=== PATIENT | male | born 1960 | race Caucasian/White ===

== ENCOUNTER 2019-07-22 21:39 | Emergency (ER) | payer MEDICARE ==
[2019-07-22 21:56] LABS: #Basophils 0.1 thou/uL (0.0-0.2); #Eosinphils 0.4 thou/uL (0.0-0.7); #Lymphocytes 2.6 thou/uL (1.20-3.40); #Monocytes 0.7 thou/uL (0.11-0.59); #Neutrophils 4.6 thou/uL (1.40-6.50); %Eosinophils 4.6 % (0.0-10.0); %Lymphocytes 30.7 % (21.0-51.0); %Monocytes 8.6 % (0.0-10.0); %Neutrophils 55.1 % (42.0-75.0); Hemoglobin 13.6 g/dL (14.0-18.0); Mean Corpuscular HGB CONC 34.7 g/dL (32.0-36.0); Mean Corpuscular Hemoglobin 29.7 pg (27.0-31.0); Mean Corpuscular Volume 85.5 fL (78.0-98.0); Platelet Count 325 thou/uL (130-400); RBC Distribution Width 12.6 % (11.5-14.5); Red Blood Cell (RBC) Count 4.59 mill/uL (4.70-6.10); White Blood Cell (WBC) Count 8.3 thou/uL (4.8-10.8)
[2019-07-22] MEDS ORDERED: Nitroglycerin 0.4 MG TAB (25 Tab Bottle) ONE (21:56)
[2019-07-22] MEDS ORDERED: Aspirin Chewable 81 MG TAB ONE (21:56)
--- NOTE | 2019-07-22 22:12 | RAD ---
XR Chest 1 View Portable HISTORY: Chest pain COMPARISON: None FINDINGS: The heart size is normal. The lungs are well expanded without focal areas of consolidation, pneumothorax or pleural effusions. IMPRESSION: No radiographic evidence of acute cardiopulmonary process.
[2019-07-22] MEDS ORDERED: Morphine 4 MG/ML VIAL ONE (22:14)
[2019-07-22] MEDS ORDERED: Nitroglycerin 2% Ointment 1 INCH/1 GM Packet ONE (22:14)
[2019-07-22 22:16] LABS: ALT (SGPT) 25 U/L (8-55); AST (SGOT) 22 U/L (5-34); Alkaline Phosphatase 52 U/L (40-110); Anion Gap 16 mmol/L (10-20); BUN (Urea Nitrogen) 25 mg/dL (8.4-25.7); Bilirubin, Total 0.2 mg/dL (0.2-1.2); Calc. Creatinine Clearance 0 mL/min (70-130); Calcium 8.9 mg/dL (7.8-10.44); Carbon Dioxide 22 mmol/L (22-29); Chloride 106 mmol/L (98-107); Estimated GFR-MDRD 87; Glucose 91 mg/dL (70-105); Potassium 3.5 mmol/L (3.5-5.1); Sodium 140 mmol/L (136-145)
== END 2019-07-22 22:50 | disposition short-term general hospital (02) ==
LOC: NAV ERS 21:39
DX: I10 Essential (primary) hypertension (principal); R07.9 Chest pain, unspecified; R94.31 Abnormal electrocardiogram [ECG] [EKG]; E78.5 Hyperlipidemia, unspecified; E78.00 Pure hypercholesterolemia, unspecified; I25.10 Atherosclerotic heart disease of native coronary artery without angina pectoris; I25.2 Old myocardial infarction; F32.9 Major depressive disorder, single episode, unspecified; Z79.891 Long term (current) use of opiate analgesic; Z79.82 Long term (current) use of aspirin; Z79.899 Other long term (current) drug therapy
CPT/HCPCS: 36415; 71045; 80053; 84484; 85025; 93005; 94760; 96374; J2270

== ENCOUNTER → 2019-11-07 | Emergency (ER) | payer MEDICARE ==
[~2019-11-07] MED LIST: Aspirin Chewable 81 MG TAB ONE; Morphine 4 MG/ML VIAL ONE; Nitroglycerin 0.4 MG TAB (25 Tab Bottle) ONE; Ondansetron PF 4 MG/2 ML Vial ONE; diphenhydrAMINE 25 MG CAP ONE
[2019-11-07 22:17] LABS: #Basophils 0.1 thou/uL (0.0-0.2); #Eosinphils 0.4 thou/uL (0.0-0.7); #Lymphocytes 2.7 thou/uL (1.20-3.40); #Monocytes 0.8 thou/uL (0.11-0.59); %Basophils 0.8 % (0.0-1.0); %Lymphocytes 24.3 % (21.0-51.0); %Monocytes 7.5 % (0.0-10.0); %Neutrophils 63.4 % (42.0-75.0); Hemoglobin 14.1 g/dL (14.0-18.0); Mean Corpuscular HGB CONC 32.1 g/dL (32.0-36.0); Mean Corpuscular Hemoglobin 29.6 pg (27.0-31.0); Mean Corpuscular Volume 92.3 fL (78.0-98.0); Mean Platelet Volume 7.2 fL (7.4-10.4); Platelet Count 306 thou/uL (130-400); RBC Distribution Width 11.9 % (11.5-14.5); Red Blood Cell (RBC) Count 4.75 mill/uL (4.70-6.10)
[2019-11-07 22:33] LABS: ALT (SGPT) 21 U/L (8-55); AST (SGOT) 21 U/L (5-34); Albumin 4.1 g/dL (3.5-5.0); Alkaline Phosphatase 47 U/L (40-110); Anion Gap 14 mmol/L (10-20); BUN (Urea Nitrogen) 20 mg/dL (8.4-25.7); Bilirubin, Total 0.3 mg/dL (0.2-1.2); Calc. Creatinine Clearance 0 mL/min (70-130); Calcium 9.1 mg/dL (7.8-10.44); Carbon Dioxide 25 mmol/L (22-29); Chloride 104 mmol/L (98-107); Estimated GFR-MDRD 80; Globulin 3.4 g/dL (2.4-3.5); Glucose 101 mg/dL (70-105); Potassium 3.7 mmol/L (3.5-5.1); Protein, Total 7.5 g/dL (6.0-8.3); Sodium 139 mmol/L (136-145)
--- NOTE | 2019-11-08 07:21 | RAD ---
CHEST 1 VIEW: Date: 11/07/2019 HISTORY: Chest pain. COMPARISON: Radiograph dated 07/28/2019. FINDINGS: Lungs are clear. There is a right humeral head prosthesis. Cardiac silhouette and mediastinal contour s are similar appearing. No acute osseous abnormality. IMPRESSION: No acute intrathoracic abnormality. POS: HOME
== END ==
LOC: NAV ERS 21:53
DX: R07.9 Chest pain, unspecified (principal); R06.02 Shortness of breath; R00.2 Palpitations; I25.2 Old myocardial infarction; E78.5 Hyperlipidemia, unspecified; R42 Dizziness and giddiness; I11.0 Hypertensive heart disease with heart failure; I50.9 Heart failure, unspecified; E78.00 Pure hypercholesterolemia, unspecified; I25.10 Atherosclerotic heart disease of native coronary artery without angina pectoris; Z79.891 Long term (current) use of opiate analgesic; Z79.82 Long term (current) use of aspirin; Z79.899 Other long term (current) drug therapy
CPT/HCPCS: 36415; 71045; 80053; 84484; 85025; 93005; 94760; 96374; 96375; 96376; J2270; J2405; Q0163

== ENCOUNTER 2019-12-01 21:57 | Emergency (ER) | payer MEDICARE ==
[2019-12-01] MEDS ORDERED: Morphine 2 MG/ML SYRINGE ONE ×2 (22:15→22:54)
[2019-12-01] MEDS ORDERED: Aspirin Chewable 81 MG TAB ONE (22:15)
[2019-12-01 22:17] LABS: #Basophils 0.1 thou/uL (0.0-0.2); #Eosinphils 0.5 thou/uL (0.0-0.7); #Lymphocytes 2.7 thou/uL (1.20-3.40); #Monocytes 0.9 thou/uL (0.11-0.59); #Neutrophils 6.9 thou/uL (1.40-6.50); %Basophils 0.7 % (0.0-1.0); %Eosinophils 4.5 % (0.0-10.0); %Lymphocytes 24.3 % (21.0-51.0); %Monocytes 8.2 % (0.0-10.0); %Neutrophils 62.3 % (42.0-75.0); Hemoglobin 13.4 g/dL (14.0-18.0); Mean Corpuscular HGB CONC 31.7 g/dL (32.0-36.0); Mean Corpuscular Volume 94.9 fL (78.0-98.0); Mean Platelet Volume 6.9 fL (7.4-10.4); Platelet Count 296 thou/uL (130-400); RBC Distribution Width 12.2 % (11.5-14.5); Red Blood Cell (RBC) Count 4.47 mill/uL (4.70-6.10)
[2019-12-01] MEDS ORDERED: Ondansetron PF 4 MG/2 ML Vial ONE (22:21)
--- NOTE | 2019-12-01 22:31 | RAD ---
Chest AP view INDICATION: Chest pain COMPARISON: Prior exam dated November 07, 2019 FINDINGS: Lungs: The lungs are clear Cardiac silhouette: The cardiomediastinal silhouette appears within normal limits. Pulmonary vasculature: Normal Pleural spaces: No pleural effusion or pneumothorax is demonstrated. Upper abdomen: No abnormality seen. Osseous structures: Right shoulder replacement is stable. No acute fracture or subluxation demonstra christian. Additional findings: None. IMPRESSION: No acute cardiopulmonary abnormality.
[2019-12-01 22:35] LABS: ALT (SGPT) 17 U/L (8-55); AST (SGOT) 22 U/L (5-34); Albumin 4.1 g/dL (3.5-5.0); Alkaline Phosphatase 46 U/L (40-110); Anion Gap 18 mmol/L (10-20); BUN (Urea Nitrogen) 19 mg/dL (8.4-25.7); Bilirubin, Total 0.3 mg/dL (0.2-1.2); CK (CPK) 115 U/L (30-200); Calc. Creatinine Clearance 0 mL/min (70-130); Calcium 9.4 mg/dL (7.8-10.44); Carbon Dioxide 21 mmol/L (22-29); Chloride 107 mmol/L (98-107); Estimated GFR-MDRD 77; Globulin 3.5 g/dL (2.4-3.5); Glucose 140 mg/dL (70-105); Lipase 50 U/L (8-78); Potassium 4.4 mmol/L (3.5-5.1); Protein, Total 7.6 g/dL (6.0-8.3); Sodium 142 mmol/L (136-145)
[2019-12-01] MEDS ORDERED: Mag-Al Plus 1200 MG/1200 MG/120 MG/30 ML UDCUP ONE (22:39)
[2019-12-01] MEDS ORDERED: Lidocaine Viscous Sol 2% 15 ml UD Cup ONE (22:39)
== END 2019-12-01 23:30 | disposition home or self-care (01) ==
LOC: NAV ERS 21:57
DX: R07.9 Chest pain, unspecified (principal); I11.0 Hypertensive heart disease with heart failure; I50.9 Heart failure, unspecified; I25.10 Atherosclerotic heart disease of native coronary artery without angina pectoris; E78.5 Hyperlipidemia, unspecified; K21.9 Gastro-esophageal reflux disease without esophagitis; Z79.899 Other long term (current) drug therapy; F41.9 Anxiety disorder, unspecified; F32.9 Major depressive disorder, single episode, unspecified; I25.2 Old myocardial infarction
CPT/HCPCS: 71045; 80053; 82550; 83690; 84484; 85025; 93005; 96374; 96375; 96376; J2270; J2405

== ENCOUNTER 2020-01-22 15:14 | Emergency (ER) | payer MEDICARE ==
[2020-01-22] MEDS ORDERED: Ondansetron PF 4 MG/2 ML Vial ONE (15:36)
[2020-01-22] MEDS ORDERED: Aspirin Chewable 81 MG TAB ONE (15:36)
[2020-01-22] MEDS ORDERED: Nitroglycerin 2% Ointment 1 INCH/1 GM Packet ONE (15:36)
--- NOTE | 2020-01-22 15:42 | RAD ---
XR Chest 1 View Portable History: Chest pain Comparison: Radiograph 07/25/2019 Findings: Intact right shoulder hemiarthroplasty with complete narrowing of the subacromial space. Mi ld elevation left hemidiaphragm, chronic. Heart size upper limits of normal. No confluent airspace consolidation, pneumothorax or effusion. Lik selina a prominent nipple shadow between the posterior left seventh and eighth ribs. Impression: Chronic findings. No acute intrathoracic abnormality.
[2020-01-22 16:17] LABS: ALT (SGPT) 23 U/L (8-55); AST (SGOT) 21 U/L (5-34); Albumin 4.2 g/dL (3.5-5.0); Alkaline Phosphatase 42 U/L (40-110); Anion Gap 14 mmol/L (10-20); BUN (Urea Nitrogen) 20 mg/dL (8.4-25.7); Bilirubin, Total 0.5 mg/dL (0.2-1.2); Calc. Creatinine Clearance 0 mL/min (70-130); Calcium 9.6 mg/dL (7.8-10.44); Carbon Dioxide 27 mmol/L (22-29); Chloride 105 mmol/L (98-107); Estimated GFR-MDRD 68; Globulin 3.3 g/dL (2.4-3.5); Glucose 104 mg/dL (70-105); Potassium 3.5 mmol/L (3.5-5.1); Protein, Total 7.5 g/dL (6.0-8.3); Sodium 142 mmol/L (136-145)
[2020-01-22] MEDS ORDERED: Morphine 4 MG/ML VIAL ONE (16:21)
[2020-01-22 16:29] LABS: #Basophils 0.1 thou/uL (0.0-0.2); #Eosinphils 0.3 thou/uL (0.0-0.7); #Lymphocytes 1.9 thou/uL (1.20-3.40); #Monocytes 0.7 thou/uL (0.11-0.59); %Basophils 0.6 % (0.0-1.0); %Eosinophils 2.8 % (0.0-10.0); %Lymphocytes 19.3 % (21.0-51.0); %Monocytes 7.2 % (0.0-10.0); Hemoglobin 14.7 g/dL (14.0-18.0); Mean Corpuscular HGB CONC 32.5 g/dL (32.0-36.0); Mean Corpuscular Hemoglobin 29.8 pg (27.0-31.0); Mean Corpuscular Volume 91.9 fL (78.0-98.0); Mean Platelet Volume 6.7 fL (7.4-10.4); Platelet Count 283 thou/uL (130-400); RBC Distribution Width 11.7 % (11.5-14.5); Red Blood Cell (RBC) Count 4.94 mill/uL (4.70-6.10); White Blood Cell (WBC) Count 9.9 thou/uL (4.8-10.8)
== END 2020-01-22 16:59 | disposition short-term general hospital (02) ==
LOC: NAV ERS 15:14
DX: R07.9 Chest pain, unspecified (principal); R11.2 Nausea with vomiting, unspecified; F41.9 Anxiety disorder, unspecified; F32.9 Major depressive disorder, single episode, unspecified; I25.10 Atherosclerotic heart disease of native coronary artery without angina pectoris; I25.2 Old myocardial infarction; I11.0 Hypertensive heart disease with heart failure; I50.9 Heart failure, unspecified; K21.9 Gastro-esophageal reflux disease without esophagitis; E78.5 Hyperlipidemia, unspecified; Z79.82 Long term (current) use of aspirin; Z79.899 Other long term (current) drug therapy
CPT/HCPCS: 71045; 80053; 83880; 84484; 85025; 93005; 96374; 96375; J2270; J2405

== ENCOUNTER 2020-05-19 01:04 | Emergency (ER) | payer MEDICARE ==
[2020-05-19] MEDS ORDERED: Aspirin Chewable 81 MG TAB ONE (01:42)
[2020-05-19] MEDS ORDERED: Nitroglycerin 0.4 MG TAB (25 Tab Bottle) ONE (01:42)
[2020-05-19 01:49] LABS: Hemoglobin 15.6 g/dL (14.0-18.0); Mean Corpuscular HGB CONC 32.1 g/dL (32.0-36.0); Mean Corpuscular Volume 93.4 fL (78.0-98.0); Mean Platelet Volume 6.3 fL (7.4-10.4); Platelet Count 324 thou/uL (130-400); RBC Distribution Width 11.9 % (11.5-14.5)
[2020-05-19] MEDS ORDERED: Mag-Al Plus 1200 MG/1200 MG/120 MG/30 ML UDCUP ONE (01:57)
[2020-05-19 01:58] LABS: Band 7 % (5-11); Eosinophils 2 % (0-10); Lymphocytes 22 % (21-51); MDiff Complete? YES; Monocytes 3 % (0-10); Neutrophil 66 % (42-75); Platelet Morphology Comment Appears Adequate; RBC Morphology Normal
[2020-05-19 02:07] LABS: ALT (SGPT) 19 U/L (8-55); AST (SGOT) 18 U/L (5-34); Alkaline Phosphatase 51 U/L (40-110); Anion Gap 14 mmol/L (10-20); BUN (Urea Nitrogen) 18 mg/dL (8.4-25.7); Bilirubin, Total 0.4 mg/dL (0.2-1.2); Calc. Creatinine Clearance 0 mL/min (70-130); Calcium 8.8 mg/dL (7.8-10.44); Carbon Dioxide 25 mmol/L (22-29); Chloride 104 mmol/L (98-107); Globulin 3.3 g/dL (2.4-3.5); Glucose 102 mg/dL (70-105); Potassium 3.6 mmol/L (3.5-5.1); Protein, Total 7.3 g/dL (6.0-8.3); Sodium 139 mmol/L (136-145)
[2020-05-19] MEDS ORDERED: Morphine 4 MG/ML VIAL ONE ×2 (03:12→05:23)
[2020-05-19] MEDS ORDERED: Ondansetron PF 4 MG/2 ML Vial ONE ×2 (03:16→05:23)
[2020-05-19 06:29] LABS: Troponin I Less than 0.010 ng/mL (< 0.028)
--- NOTE | 2020-05-19 07:41 | RAD ---
EXAM: Single view of the chest HISTORY: Chest pain COMPARISON: 04/20/2020 FINDINGS: Single view of the chest shows a normal sized cardiomediastinal silhouette. There is no lon dence of consolidation, mass, or pleural effusion. The patient is status post right shoulder arthroplasty. Degenerative changes are seen in the spine. IMPRESSION: No evidence of acute cardiopulmonary disease
== END 2020-05-19 07:08 | disposition home or self-care (01) ==
LOC: NAV ERS 01:04
DX: R07.9 Chest pain, unspecified (principal); I11.0 Hypertensive heart disease with heart failure; I50.9 Heart failure, unspecified; E78.5 Hyperlipidemia, unspecified; E78.00 Pure hypercholesterolemia, unspecified; G47.30 Sleep apnea, unspecified; K21.9 Gastro-esophageal reflux disease without esophagitis; I25.10 Atherosclerotic heart disease of native coronary artery without angina pectoris; Z87.19 Personal history of other diseases of the digestive system; Z79.82 Long term (current) use of aspirin; Z79.899 Other long term (current) drug therapy
CPT/HCPCS: 71045; 80053; 83880; 84484; 85025; 93005; 96374; 96375; 96376; J2270; J2405

== ENCOUNTER 2020-06-19 18:28 | Emergency (ER) | payer MEDICARE ==
--- NOTE | 2020-06-19 18:58 | RAD ---
XR Chest 1 View Portable HISTORY: Left-sided chest pain COMPARISON: 05/19/2020 FINDINGS: The heart size is normal. The lungs are well expanded without focal areas of consolidation, pneumothorax or pleural effusions. Right humeral head prosthesis remains in place. There are degenerative changes in the spine. IMPRESSION: No radiographic evidence of acute cardiopulmonary process.
[2020-06-19 18:59] LABS: #Basophils 0.1 thou/uL (0.0-0.2); #Eosinphils 0.4 thou/uL (0.0-0.7); #Lymphocytes 2.6 thou/uL (1.20-3.40); #Monocytes 1.1 thou/uL (0.11-0.59); #Neutrophils 7.3 thou/uL (1.40-6.50); %Basophils 0.7 % (0.0-1.0); %Eosinophils 3.1 % (0.0-10.0); %Lymphocytes 22.9 % (21.0-51.0); %Monocytes 9.2 % (0.0-10.0); Hemoglobin 15.2 g/dL (14.0-18.0); Mean Corpuscular HGB CONC 32.1 g/dL (32.0-36.0); Mean Corpuscular Hemoglobin 30.1 pg (27.0-31.0); Mean Corpuscular Volume 93.7 fL (78.0-98.0); Mean Platelet Volume 5.9 fL (7.4-10.4); Platelet Count 379 thou/uL (130-400); RBC Distribution Width 12.2 % (11.5-14.5); Red Blood Cell (RBC) Count 5.04 mill/uL (4.70-6.10); White Blood Cell (WBC) Count 11.4 thou/uL (4.8-10.8)
[2020-06-19] MEDS ORDERED: Morphine 4 MG/ML VIAL ONE (19:01)
[2020-06-19] MEDS ORDERED: Ondansetron PF 4 MG/2 ML Vial ONE (19:01)
[2020-06-19 19:16] LABS: ALT (SGPT) 34 U/L (8-55); AST (SGOT) 22 U/L (5-34); Albumin 4.1 g/dL (3.5-5.0); Alkaline Phosphatase 54 U/L (40-110); Anion Gap 16 mmol/L (10-20); BUN (Urea Nitrogen) 22 mg/dL (8.4-25.7); Bilirubin, Total 0.3 mg/dL (0.2-1.2); CK (CPK) 79 U/L (30-200); Calc. Creatinine Clearance 0 mL/min (70-130); Carbon Dioxide 25 mmol/L (22-29); Chloride 102 mmol/L (98-107); Globulin 3.3 g/dL (2.4-3.5); Glucose 125 mg/dL (70-105); Lipase 46 U/L (8-78); Potassium 4.3 mmol/L (3.5-5.1); Protein, Total 7.4 g/dL (6.0-8.3); Sodium 139 mmol/L (136-145)
[2020-06-19] MEDS ORDERED: Sodium Chloride 0.9% 1,000 ML ONE (20:06)
== END 2020-06-19 21:00 | disposition short-term general hospital (02) ==
LOC: NAV ERS 18:28
DX: R07.9 Chest pain, unspecified (principal); R11.10 Vomiting, unspecified; I25.10 Atherosclerotic heart disease of native coronary artery without angina pectoris; K21.9 Gastro-esophageal reflux disease without esophagitis; E78.5 Hyperlipidemia, unspecified; E78.00 Pure hypercholesterolemia, unspecified; I11.0 Hypertensive heart disease with heart failure; I50.9 Heart failure, unspecified; G47.33 Obstructive sleep apnea (adult) (pediatric); I25.2 Old myocardial infarction; Z79.82 Long term (current) use of aspirin; Z79.899 Other long term (current) drug therapy
CPT/HCPCS: 71045; 80053; 82550; 83690; 84484; 85025; 93005; 96374; 96375; J2270; J2405; J7050

== ENCOUNTER 2020-06-29 05:27 | Emergency (ER) | payer MEDICARE ==
[2020-06-29 06:02] LABS: Bilirubin Negative (Negative); Blood, Urine Trace (Negative); Clarity Clear (Clear); Glucose, Urine (Dipstick) Negative (Negative); Ketone, Urine Negative (Negative); Leukocyte Negative (Negative); Nitrite Negative (Negative); Protein, Urine (Dipstick) Negative (Neg-Trace); Specific Gravity, Urine 1.025 (1.005-1.030)
[2020-06-29 06:03] LABS: Bacteria/HPF None Seen HPF (None Seen); Mucous/LPF Rare LPF (<2+); Squamous Epithelial None Seen HPF (0-3); WBC/HPF 0-3 HPF (0-3)
[2020-06-29] MEDS ORDERED: Ketorolac Tromethamine 60 MG/2 ML VIAL ONE (06:35)
[2020-06-29 06:38] LABS: #Basophils 0.1 thou/uL (0.0-0.2); #Eosinphils 0.5 thou/uL (0.0-0.7); #Lymphocytes 2.3 thou/uL (1.20-3.40); #Monocytes 0.9 thou/uL (0.11-0.59); #Neutrophils 3.3 thou/uL (1.40-6.50); %Basophils 0.8 % (0.0-1.0); %Eosinophils 7.7 % (0.0-10.0); %Lymphocytes 32.6 % (21.0-51.0); %Monocytes 12.1 % (0.0-10.0); %Neutrophils 46.7 % (42.0-75.0); Hemoglobin 13.6 g/dL (14.0-18.0); Mean Corpuscular HGB CONC 32.8 g/dL (32.0-36.0); Mean Corpuscular Volume 91.5 fL (78.0-98.0); Mean Platelet Volume 6.5 fL (7.4-10.4); Platelet Count 257 thou/uL (130-400); RBC Distribution Width 11.8 % (11.5-14.5); Red Blood Cell (RBC) Count 4.53 mill/uL (4.70-6.10)
[2020-06-29 06:53] LABS: ALT (SGPT) 23 U/L (8-55); AST (SGOT) 20 U/L (5-34); Albumin 3.8 g/dL (3.5-5.0); Alkaline Phosphatase 47 U/L (40-110); Anion Gap 14 mmol/L (10-20); BUN (Urea Nitrogen) 23 mg/dL (8.4-25.7); Bilirubin, Total 0.7 mg/dL (0.2-1.2); Calc. Creatinine Clearance 0 mL/min (70-130); Calcium 8.4 mg/dL (7.8-10.44); Carbon Dioxide 25 mmol/L (22-29); Chloride 102 mmol/L (98-107); Globulin 3.1 g/dL (2.4-3.5); Glucose 110 mg/dL (70-105); Potassium 3.8 mmol/L (3.5-5.1); Protein, Total 6.9 g/dL (6.0-8.3); Sodium 137 mmol/L (136-145)
== END 2020-06-29 07:15 | disposition home or self-care (01) ==
LOC: NAV ERS 05:27
DX: M54.5 Low back pain (principal); K59.00 Constipation, unspecified; E86.0 Dehydration; K21.9 Gastro-esophageal reflux disease without esophagitis; I11.0 Hypertensive heart disease with heart failure; I50.9 Heart failure, unspecified; E78.5 Hyperlipidemia, unspecified; E78.00 Pure hypercholesterolemia, unspecified; G47.30 Sleep apnea, unspecified; Z79.899 Other long term (current) drug therapy
CPT/HCPCS: 80053; 81003; 81015; 85025; 96372; 99283; J1885

== ENCOUNTER 2020-07-12 16:47 | Emergency (ER) | payer MEDICARE ==
[2020-07-12] MEDS ORDERED: Aspirin Chewable 81 MG TAB ONE (17:00)
[2020-07-12 17:13] LABS: #Basophils 0.1 thou/uL (0.0-0.2); #Eosinphils 0.3 thou/uL (0.0-0.7); #Lymphocytes 1.6 thou/uL (1.20-3.40); #Monocytes 0.6 thou/uL (0.11-0.59); #Neutrophils 6.4 thou/uL (1.40-6.50); %Basophils 0.7 % (0.0-1.0); %Eosinophils 2.9 % (0.0-10.0); %Monocytes 6.3 % (0.0-10.0); %Neutrophils 72.2 % (42.0-75.0); Hemoglobin 14.9 g/dL (14.0-18.0); Mean Corpuscular HGB CONC 33.1 g/dL (32.0-36.0); Mean Corpuscular Hemoglobin 30.5 pg (27.0-31.0); Mean Corpuscular Volume 92.1 fL (78.0-98.0); Platelet Count 311 thou/uL (130-400); RBC Distribution Width 11.5 % (11.5-14.5); Red Blood Cell (RBC) Count 4.91 mill/uL (4.70-6.10); White Blood Cell (WBC) Count 8.9 thou/uL (4.8-10.8)
[2020-07-12] MEDS ORDERED: Nitroglycerin 0.4 MG TAB (25 Tab Bottle) ONE (17:22)
[2020-07-12 17:26] LABS: PTT 28.5 sec (22.9-36.1); Prothrombin Time 13.1 sec (12.0-14.7)
[2020-07-12 17:33] LABS: ALT (SGPT) 25 U/L (8-55); AST (SGOT) 21 U/L (5-34); Albumin 3.8 g/dL (3.5-5.0); Alkaline Phosphatase 55 U/L (40-110); Anion Gap 17 mmol/L (10-20); BUN (Urea Nitrogen) 22 mg/dL (8.4-25.7); Bilirubin, Total 0.5 mg/dL (0.2-1.2); Calc. Creatinine Clearance 0 mL/min (70-130); Calcium 8.7 mg/dL (7.8-10.44); Carbon Dioxide 23 mmol/L (22-29); Chloride 106 mmol/L (98-107); Globulin 3.5 g/dL (2.4-3.5); Glucose 135 mg/dL (70-105); Potassium 3.7 mmol/L (3.5-5.1); Protein, Total 7.3 g/dL (6.0-8.3); Sodium 142 mmol/L (136-145)
[2020-07-12] MEDS ORDERED: Morphine 4 MG/ML VIAL ONE (18:10)
--- NOTE | 2020-07-12 19:03 | RAD ---
PORTABLE CHEST ONE VIEW: Date: 07-12-2020 Time: 6:01 p.m. History: Chest pain Comparison: 06-19-2020 FINDINGS: The heart size is normal. The lungs are expanded without lobar consolidation, pneumothoraces or pleur al effusions. The right humeral head prosthesis is stable. There is minimal scarring in the left lung base. IMPRESSION: No acute process. POS: [facility]
== END 2020-07-12 18:57 | disposition short-term general hospital (02) ==
LOC: NAV ERS 16:47
DX: R07.9 Chest pain, unspecified (principal); R06.02 Shortness of breath; I25.10 Atherosclerotic heart disease of native coronary artery without angina pectoris; I25.2 Old myocardial infarction; I11.0 Hypertensive heart disease with heart failure; I50.9 Heart failure, unspecified; K21.9 Gastro-esophageal reflux disease without esophagitis; E78.5 Hyperlipidemia, unspecified; E78.00 Pure hypercholesterolemia, unspecified; G47.33 Obstructive sleep apnea (adult) (pediatric); Z79.899 Other long term (current) drug therapy; Z79.82 Long term (current) use of aspirin
CPT/HCPCS: 71045; 80053; 83880; 84484; 85025; 85610; 85730; 93005; 94760; 96374; J2270

== ENCOUNTER 2020-10-14 19:09 | Emergency (ER) | payer MEDICARE ==
[2020-10-14] MEDS ORDERED: Aspirin Chewable 81 MG TAB ONE (19:43)
[2020-10-14] MEDS ORDERED: Sodium Chloride 0.9% 500 ML ONE (19:43)
[2020-10-14] MEDS ORDERED: Acetaminophen 500 MG TAB ONE (19:43)
[2020-10-14] MEDS ORDERED: Ondansetron PF 4 MG/2 ML Vial ONE (19:43)
[2020-10-14] MEDS ORDERED: Morphine 4 MG/ML VIAL ONE (19:43)
[2020-10-14] MEDS ORDERED: Nitroglycerin 2% Ointment 1 INCH/1 GM Packet ONE (19:51)
[2020-10-14 19:52] LABS: #Basophils 0.1 thou/uL (0.0-0.2); #Eosinphils 0.4 thou/uL (0.0-0.7); #Lymphocytes 2.3 thou/uL (1.20-3.40); #Monocytes 1.1 thou/uL (0.11-0.59); #Neutrophils 7.1 thou/uL (1.40-6.50); %Basophils 0.9 % (0.0-1.0); %Eosinophils 3.3 % (0.0-10.0); %Monocytes 10.1 % (0.0-10.0); %Neutrophils 64.7 % (42.0-75.0); Mean Corpuscular Hemoglobin 29.6 pg (27.0-31.0); Mean Corpuscular Volume 98.4 fL (78.0-98.0); Mean Platelet Volume 6.7 fL (7.4-10.4); Platelet Count 310 thou/uL (130-400); RBC Distribution Width 13.1 % (11.5-14.5); Red Blood Cell (RBC) Count 4.39 mill/uL (4.70-6.10)
[2020-10-14 19:55] LABS: INR-International Normal Ratio 0.9; PTT 24.7 sec (22.9-36.1); Prothrombin Time 12.7 sec (12.0-14.7)
[2020-10-14 20:03] LABS: ALT (SGPT) 23 U/L (8-55); AST (SGOT) 19 U/L (5-34); Albumin 3.7 g/dL (3.5-5.0); Alkaline Phosphatase 52 U/L (40-110); Anion Gap 14 mmol/L (10-20); BUN (Urea Nitrogen) 15 mg/dL (8.4-25.7); Bilirubin, Total 0.2 mg/dL (0.2-1.2); Calc. Creatinine Clearance 0 mL/min (70-130); Calcium 8.6 mg/dL (7.8-10.44); Carbon Dioxide 25 mmol/L (22-29); Chloride 104 mmol/L (98-107); Globulin 3.2 g/dL (2.4-3.5); Glucose 130 mg/dL (70-105); Potassium 3.7 mmol/L (3.5-5.1); Protein, Total 6.9 g/dL (6.0-8.3); Sodium 139 mmol/L (136-145)
== END 2020-10-14 20:37 | disposition short-term general hospital (02) ==
LOC: NAV ERS 19:09
DX: R07.9 Chest pain, unspecified (principal); I25.10 Atherosclerotic heart disease of native coronary artery without angina pectoris; I50.9 Heart failure, unspecified; I25.2 Old myocardial infarction; E78.5 Hyperlipidemia, unspecified; E78.00 Pure hypercholesterolemia, unspecified; I11.0 Hypertensive heart disease with heart failure; G47.30 Sleep apnea, unspecified; Z79.899 Other long term (current) drug therapy; Z79.82 Long term (current) use of aspirin
CPT/HCPCS: 71045; 80053; 83880; 84484; 85025; 85610; 85730; 93005; 96374; 96375; J2270; J2405; J7030

== ENCOUNTER 2020-10-22 13:52 | Outpatient (CLI) | payer MEDICARE | END 2020-10-22 13:53 | disposition home or self-care (01) | LOC: NAV RAD 13:52 | PROVIDERS: ATTEND Internal Medicine | DX: M79.675 Pain in left toe(s) (principal) ==

== ENCOUNTER 2020-12-30 14:10 | Emergency (ER) | payer MEDICARE ==
[2020-12-30] MEDS ORDERED: Sodium Chloride 0.9% 1,000 ML ONE ×3 (14:37→18:30)
[2020-12-30] MEDS ORDERED: Pantoprazole 40 MG VIAL ONE (14:37)
[2020-12-30 14:38] LABS: Hemoglobin 11.7 g/dL (14.0-18.0); Mean Corpuscular HGB CONC 31.5 g/dL (32.0-36.0); Mean Corpuscular Hemoglobin 30.1 pg (27.0-31.0); Mean Corpuscular Volume 95.4 fL (78.0-98.0); Mean Platelet Volume 5.6 fL (7.4-10.4); Platelet Count 348 thou/uL (130-400); White Blood Cell (WBC) Count 8.7 thou/uL (4.8-10.8)
[2020-12-30 14:50] LABS: INR-International Normal Ratio 1.2; Prothrombin Time 14.7 sec (12.0-14.7)
[2020-12-30 14:51] LABS: PTT 41.1 sec (22.9-36.1)
[2020-12-30 14:57] LABS: ALT (SGPT) 17 U/L (8-55); AST (SGOT) 28 U/L (5-34); Albumin 3.5 g/dL (3.5-5.0); Alkaline Phosphatase 44 U/L (40-110); Anion Gap 17 mmol/L (10-20); BUN (Urea Nitrogen) 37 mg/dL (8.4-25.7); Bilirubin, Total 0.6 mg/dL (0.2-1.2); Calc. Creatinine Clearance 0 mL/min (70-130); Calcium 9.4 mg/dL (7.8-10.44); Carbon Dioxide 25 mmol/L (22-29); Chloride 97 mmol/L (98-107); Globulin 4.1 g/dL (2.4-3.5); Glucose 141 mg/dL (70-105); Potassium 4.4 mmol/L (3.5-5.1); Protein, Total 7.6 g/dL (6.0-8.3); Sodium 135 mmol/L (136-145)
[2020-12-30 15:08] LABS: Band 6 % (5-11); CRP (Inflammatory) 17.9 mg/dL (= or < 0.5); Lymphocytes 21 % (21-51); MDiff Complete? YES; Monocytes 10 % (0-10); Neutrophil 63 % (42-75); Platelet Morphology Comment Appears Adequate; RBC Morphology Normal
[2020-12-30] MEDS ORDERED: Piperacillin/Tazobactam 4.5 GM VIAL ONE (15:30)
[2020-12-30] MEDS ORDERED: Sodium Chloride 0.9% 100 ML ONE (15:31)
[2020-12-30 15:50] LABS: Bilirubin Small (Negative); Blood, Urine Negative (Negative); Clarity Clear (Clear); Glucose, Urine (Dipstick) Negative (Negative); Ketone, Urine Negative (Negative); Leukocyte Negative (Negative); Nitrite Negative (Negative); Protein, Urine (Dipstick) 30 mg/dL (Neg-Trace); Specific Gravity, Urine 1.025 (1.005-1.030); pH, Urine 5.5 (5.0-9.0)
[2020-12-30 15:56] LABS: Bacteria/HPF 1+ HPF (None Seen); RBC/HPF 0-3 HPF (0-3); Squamous Epithelial 0-3 HPF (0-3); WBC/HPF 0-3 HPF (0-3)
[2020-12-30] MEDS ORDERED: Morphine 4 MG/ML VIAL ONE (17:10)
[2020-12-30 19:43] LABS: SARS-CoV-2 NAA Rapid Test Not Detected (NotDetected)
== END 2020-12-30 19:18 | disposition short-term general hospital (02) ==
LOC: NAV ERS 14:10
DX: N18.30 Chronic kidney disease, stage 3 unspecified (principal); I95.9 Hypotension, unspecified; Z20.822 Contact with and (suspected) exposure to COVID-19; I25.10 Atherosclerotic heart disease of native coronary artery without angina pectoris; I25.2 Old myocardial infarction; K21.9 Gastro-esophageal reflux disease without esophagitis; E78.5 Hyperlipidemia, unspecified; E78.00 Pure hypercholesterolemia, unspecified; Z79.82 Long term (current) use of aspirin; Z79.899 Other long term (current) drug therapy
CPT/HCPCS: 71045; 74176; 80053; 82150; 82274; 82550; 83605; 84484; 85025; 85610; 85730; 86140; 86850; 86900; 86901; 87040; 94760; U0002; 36415; 81003; 81015; 96365; 96375; C9113; J2270; J2543; J3490; J7050

== ENCOUNTER 2021-04-09 23:29 | Emergency (ER) | payer MEDICARE, OTHER ==
[2021-04-09 23:58] LABS: #Basophils 0.1 thou/uL (0.0-0.2); #Eosinphils 0.4 thou/uL (0.0-0.7); #Lymphocytes 2.5 thou/uL (1.20-3.40); #Monocytes 0.9 thou/uL (0.11-0.59); #Neutrophils 6.8 thou/uL (1.40-6.50); %Basophils 0.7 % (0.0-1.0); %Eosinophils 3.9 % (0.0-10.0); %Lymphocytes 23.9 % (21.0-51.0); %Neutrophils 63.6 % (42.0-75.0); Hemoglobin 14.4 g/dL (14.0-18.0); Mean Corpuscular HGB CONC 32.8 g/dL (32.0-36.0); Mean Corpuscular Hemoglobin 31.3 pg (27.0-31.0); Mean Corpuscular Volume 95.5 fL (78.0-98.0); Mean Platelet Volume 6.6 fL (7.4-10.4); Platelet Count 321 thou/uL (130-400); RBC Distribution Width 11.8 % (11.5-14.5); Red Blood Cell (RBC) Count 4.59 mill/uL (4.70-6.10); White Blood Cell (WBC) Count 10.6 thou/uL (4.8-10.8)
[2021-04-09] MEDS ORDERED: Aspirin Chewable 81 MG TAB ONE (23:58)
[2021-04-09] MEDS ORDERED: Nitroglycerin 0.4 MG TAB (25 Tab Bottle) ONE ×2 (23:58→23:59)
[2021-04-10 00:14] LABS: ALT (SGPT) 19 U/L (8-55); AST (SGOT) 21 U/L (5-34); Albumin 3.8 g/dL (3.5-5.0); Alkaline Phosphatase 59 U/L (40-110); Anion Gap 13 mmol/L (10-20); BUN (Urea Nitrogen) 16 mg/dL (8.4-25.7); Bilirubin, Total 0.2 mg/dL (0.2-1.2); Calc. Creatinine Clearance 0 mL/min (70-130); Calcium 9.6 mg/dL (7.8-10.44); Carbon Dioxide 26 mmol/L (22-29); Chloride 105 mmol/L (98-107); Glucose 123 mg/dL (70-105); Potassium 3.9 mmol/L (3.5-5.1); Protein, Total 7.8 g/dL (6.0-8.3); Sodium 140 mmol/L (136-145)
[2021-04-10] MEDS ORDERED: Acetaminophen 500 MG TAB ONE (00:21)
[2021-04-10] MEDS ORDERED: Ondansetron PF 4 MG/2 ML Vial ONE (00:34)
[2021-04-10] MEDS ORDERED: Morphine 4 MG/ML VIAL ONE (00:34)
[2021-04-10] MEDS ORDERED: Nitroglycerin 2% Ointment 1 INCH/1 GM Packet ONE (01:10)
[2021-04-10 01:35] LABS: SARS-CoV-2 NAA Rapid Test Not Detected (NotDetected)
== END 2021-04-10 01:27 | disposition short-term general hospital (02) ==
LOC: NAV ERS 23:29
DX: R07.2 Precordial pain (principal); I25.10 Atherosclerotic heart disease of native coronary artery without angina pectoris; I25.2 Old myocardial infarction; K21.9 Gastro-esophageal reflux disease without esophagitis; E78.5 Hyperlipidemia, unspecified; E78.00 Pure hypercholesterolemia, unspecified; I11.0 Hypertensive heart disease with heart failure; I50.9 Heart failure, unspecified; G47.31 Primary central sleep apnea; G47.33 Obstructive sleep apnea (adult) (pediatric); Z20.822 Contact with and (suspected) exposure to COVID-19; Z79.82 Long term (current) use of aspirin; Z79.899 Other long term (current) drug therapy
CPT/HCPCS: 71045; 80053; 84484; 85025; 93005; 96374; 96375; J2270; J2405; U0002

== ENCOUNTER 2021-04-15 09:30 | Outpatient (CLI) | payer MEDICARE | END 2021-04-15 09:31 | disposition home or self-care (01) | LOC: NAV RAD 09:30 | PROVIDERS: ATTEND Family Medicine | DX: M25.551 Pain in right hip (principal); M16.11 Unilateral primary osteoarthritis, right hip ==

== ENCOUNTER 2021-05-03 23:15 | Emergency (ER) | payer MEDICARE ==
[2021-05-03] MEDS ORDERED: Fluorescein Opthalmic Strip ONE (23:27)
[2021-05-03] MEDS ORDERED: Tetracaine 0.5% PF 4 ML BOT ONE (23:27)
[2021-05-03] MEDS ORDERED: Erythromycin Base 0.5% Oint 1 GM TUBE ONE (23:40)
== END 2021-05-03 23:59 | disposition home or self-care (01) ==
LOC: NAV ERS 23:15
DX: T15.01XA Foreign body in cornea, right eye, initial encounter (principal); I25.10 Atherosclerotic heart disease of native coronary artery without angina pectoris; I25.2 Old myocardial infarction; K21.9 Gastro-esophageal reflux disease without esophagitis; E78.5 Hyperlipidemia, unspecified; I11.0 Hypertensive heart disease with heart failure; I50.9 Heart failure, unspecified; G47.33 Obstructive sleep apnea (adult) (pediatric); Z79.899 Other long term (current) drug therapy; Z79.82 Long term (current) use of aspirin
CPT/HCPCS: 99282

== ENCOUNTER 2021-05-09 22:22 | Emergency (ER) | payer MEDICARE ==
[2021-05-09] MEDS ORDERED: Aspirin Chewable 81 MG TAB ONE (22:32)
[2021-05-09 22:41] LABS: #Basophils 0.1 thou/uL (0.0-0.2); #Eosinphils 0.4 thou/uL (0.0-0.7); #Lymphocytes 2.9 thou/uL (1.20-3.40); #Monocytes 0.8 thou/uL (0.11-0.59); %Basophils 0.6 % (0.0-1.0); %Eosinophils 4.2 % (0.0-10.0); %Lymphocytes 28.1 % (21.0-51.0); %Monocytes 8.1 % (0.0-10.0); %Neutrophils 58.9 % (42.0-75.0); Hemoglobin 13.4 g/dL (14.0-18.0); Mean Corpuscular HGB CONC 32.8 g/dL (32.0-36.0); Mean Corpuscular Hemoglobin 30.5 pg (27.0-31.0); Mean Corpuscular Volume 93.1 fL (78.0-98.0); Platelet Count 320 thou/uL (130-400); Red Blood Cell (RBC) Count 4.38 mill/uL (4.70-6.10); White Blood Cell (WBC) Count 10.2 thou/uL (4.8-10.8)
[2021-05-09] MEDS ORDERED: Acetaminophen 500 MG TAB ONE (22:59)
[2021-05-09] MEDS ORDERED: Nitroglycerin 0.4 MG TAB (25 Tab Bottle) ONE (22:59)
[2021-05-09 23:00] LABS: ALT (SGPT) 22 U/L (8-55); AST (SGOT) 22 U/L (5-34); Albumin 3.9 g/dL (3.5-5.0); Alkaline Phosphatase 52 U/L (40-110); Anion Gap 11 mmol/L (10-20); BUN (Urea Nitrogen) 19 mg/dL (8.4-25.7); Bilirubin, Total 0.4 mg/dL (0.2-1.2); Calc. Creatinine Clearance 0 mL/min (70-130); Calcium 9.1 mg/dL (7.8-10.44); Carbon Dioxide 25 mmol/L (22-29); Chloride 107 mmol/L (98-107); Globulin 3.4 g/dL (2.4-3.5); Glucose 109 mg/dL (70-105); Lipase 43 U/L (8-78); Potassium 3.4 mmol/L (3.5-5.1); Protein, Total 7.3 g/dL (6.0-8.3); Sodium 140 mmol/L (136-145)
[2021-05-09] MEDS ORDERED: Nitroglycerin 2% Ointment 1 INCH/1 GM Packet ONE (23:20)
[2021-05-09] MEDS ORDERED: Morphine 4 MG/ML VIAL ONE (23:20)
[2021-05-09] MEDS ORDERED: Ondansetron PF 4 MG/2 ML Vial ONE (23:26)
[2021-05-09] MEDS ORDERED: Pantoprazole 40 MG VIAL ONE (23:58)
[2021-05-10 00:28] LABS: SARS-CoV-2 NAA Rapid Test Not Detected (NotDetected)
[2021-05-10] MEDS ORDERED: Morphine 4 MG/ML VIAL ONE (02:04)
[2021-05-10] MEDS ORDERED: Nitroglycerin 50 MG/250 ML BOT 250 ML ONE (02:05)
[2021-05-10] MEDS ORDERED: Sodium Chloride 0.9% 1,000 ML ONE (02:06)
== END 2021-05-10 03:00 | disposition home or self-care (01) ==
LOC: NAV ERS 22:22
DX: R07.9 Chest pain, unspecified (principal); R42 Dizziness and giddiness; Z20.822 Contact with and (suspected) exposure to COVID-19; I11.0 Hypertensive heart disease with heart failure; I50.9 Heart failure, unspecified; K21.9 Gastro-esophageal reflux disease without esophagitis; I25.2 Old myocardial infarction; E78.5 Hyperlipidemia, unspecified; E78.00 Pure hypercholesterolemia, unspecified; I25.10 Atherosclerotic heart disease of native coronary artery without angina pectoris; Z79.82 Long term (current) use of aspirin; Z79.899 Other long term (current) drug therapy
CPT/HCPCS: 71045; 80053; 83690; 83880; 84484; 85025; 85379; 93005 ×2; 94760; 96365; 96375; 96376; 99285; U0002; C9113; J2270; J2405; J7050

== ENCOUNTER 2021-06-18 14:45 | Emergency (ER) | payer MEDICARE, OTHER ==
[2021-06-18] MEDS ORDERED: Ketorolac Tromethamine 60 MG/2 ML VIAL ONE (15:16)
[2021-06-18] MEDS ORDERED: Cyclobenzaprine 10 MG TAB ONE (15:56)
[2021-06-18] MEDS ORDERED: Acetaminophen/Codeine 30-300mg Tablet ONE (15:56)
== END 2021-06-18 15:58 | disposition home or self-care (01) ==
LOC: NAV ERS 14:45
DX: S39.012A Strain of muscle, fascia and tendon of lower back, initial encounter (principal); I25.10 Atherosclerotic heart disease of native coronary artery without angina pectoris; I25.2 Old myocardial infarction; K21.9 Gastro-esophageal reflux disease without esophagitis; E78.5 Hyperlipidemia, unspecified; E78.00 Pure hypercholesterolemia, unspecified; I11.0 Hypertensive heart disease with heart failure; I50.9 Heart failure, unspecified; G47.30 Sleep apnea, unspecified; Z79.82 Long term (current) use of aspirin; Z79.899 Other long term (current) drug therapy
CPT/HCPCS: 72170; 96372; J1885

== ENCOUNTER 2021-07-06 19:45 | Emergency (ER) | payer MEDICARE ==
[2021-07-06] MEDS ORDERED: Nitroglycerin 2% Ointment 1 INCH/1 GM Packet ONE (20:11)
[2021-07-06 20:16] LABS: #Basophils 0.1 thou/uL (0.0-0.2); #Eosinphils 0.2 thou/uL (0.0-0.7); #Lymphocytes 2.1 thou/uL (1.20-3.40); #Monocytes 0.6 thou/uL (0.11-0.59); #Neutrophils 5.5 thou/uL (1.40-6.50); %Basophils 0.7 % (0.0-1.0); %Eosinophils 2.3 % (0.0-10.0); %Lymphocytes 25.1 % (21.0-51.0); %Monocytes 7.2 % (0.0-10.0); %Neutrophils 64.7 % (42.0-75.0); Hemoglobin 13.5 g/dL (14.0-18.0); Mean Corpuscular HGB CONC 31.8 g/dL (32.0-36.0); Mean Corpuscular Hemoglobin 29.6 pg (27.0-31.0); Mean Corpuscular Volume 93.3 fL (78.0-98.0); Mean Platelet Volume 6.7 fL (7.4-10.4); Platelet Count 322 thou/uL (130-400); RBC Distribution Width 12.6 % (11.5-14.5); Red Blood Cell (RBC) Count 4.54 mill/uL (4.70-6.10); White Blood Cell (WBC) Count 8.4 thou/uL (4.8-10.8)
[2021-07-06] MEDS ORDERED: Morphine 4 MG/ML VIAL ONE ×2 (20:16→20:37)
[2021-07-06] MEDS ORDERED: Ondansetron PF 4 MG/2 ML Vial ONE (20:17)
[2021-07-06] MEDS ORDERED: Pantoprazole 40 MG VIAL ONE (20:17)
[2021-07-06 20:31] LABS: ALT (SGPT) 18 U/L (8-55); AST (SGOT) 18 U/L (5-34); Albumin 3.9 g/dL (3.5-5.0); Alkaline Phosphatase 50 U/L (40-110); Anion Gap 14 mmol/L (10-20); BUN (Urea Nitrogen) 28 mg/dL (8.4-25.7); Bilirubin, Total 0.4 mg/dL (0.2-1.2); Calc. Creatinine Clearance 0 mL/min (70-130); Calcium 8.8 mg/dL (7.8-10.44); Carbon Dioxide 22 mmol/L (22-29); Chloride 104 mmol/L (98-107); Globulin 3.2 g/dL (2.4-3.5); Glucose 177 mg/dL (70-105); Lipase 29 U/L (8-78); Potassium 3.7 mmol/L (3.5-5.1); Protein, Total 7.1 g/dL (6.0-8.3); Sodium 136 mmol/L (136-145)
[2021-07-06] MEDS ORDERED: Mag-Al Plus 1200 MG/1200 MG/120 MG/30 ML UDCUP ONE (21:03)
[2021-07-06] MEDS ORDERED: Lidocaine Viscous Sol 2% 15 ml UD Cup ONE (21:03)
== END 2021-07-06 21:11 | disposition short-term general hospital (02) ==
LOC: NAV ERS 19:45
DX: S19.9XXA Unspecified injury of neck, initial encounter (principal); I25.10 Atherosclerotic heart disease of native coronary artery without angina pectoris; I45.10 Unspecified right bundle-branch block; I11.0 Hypertensive heart disease with heart failure; I50.9 Heart failure, unspecified; I25.2 Old myocardial infarction; K21.9 Gastro-esophageal reflux disease without esophagitis; E78.5 Hyperlipidemia, unspecified; K44.9 Diaphragmatic hernia without obstruction or gangrene; E78.00 Pure hypercholesterolemia, unspecified; G47.33 Obstructive sleep apnea (adult) (pediatric); W18.12XA Fall from or off toilet with subsequent striking against object, initial encounter; Z79.82 Long term (current) use of aspirin; Z79.899 Other long term (current) drug therapy; Z95.5 Presence of coronary angioplasty implant and graft
CPT/HCPCS: 71045; 72125; 80053; 83690; 84484; 85025; 93005; 96374; 96375; C9113; J2270; J2405

== ENCOUNTER 2021-08-03 19:54 | Emergency (ER) | payer OTHER ==
[2021-08-03] MEDS ORDERED: Aspirin Chewable 81 MG TAB ONE (20:16)
[2021-08-03] MEDS ORDERED: Nitroglycerin 0.4 MG TAB (25 Tab Bottle) ONE (20:31)
[2021-08-03 20:43] LABS: #Basophils 0.1 thou/uL (0.0-0.2); #Eosinphils 0.4 thou/uL (0.0-0.7); #Monocytes 0.6 thou/uL (0.11-0.59); #Neutrophils 8.8 thou/uL (1.40-6.50); %Basophils 0.7 % (0.0-1.0); %Eosinophils 3.1 % (0.0-10.0); %Lymphocytes 16.7 % (21.0-51.0); %Monocytes 5.4 % (0.0-10.0); %Neutrophils 74.1 % (42.0-75.0); Hemoglobin 12.7 g/dL (14.0-18.0); Mean Corpuscular HGB CONC 31.1 g/dL (32.0-36.0); Mean Corpuscular Hemoglobin 28.3 pg (27.0-31.0); Mean Corpuscular Volume 91.1 fL (78.0-98.0); Mean Platelet Volume 5.2 fL (7.4-10.4); Platelet Count 637 thou/uL (130-400); RBC Distribution Width 12.7 % (11.5-14.5); Red Blood Cell (RBC) Count 4.47 mill/uL (4.70-6.10); White Blood Cell (WBC) Count 11.9 thou/uL (4.8-10.8)
[2021-08-03 20:50] LABS: ALT (SGPT) 12 U/L (8-55); AST (SGOT) 18 U/L (5-34); Albumin 4.2 g/dL (3.5-5.0); Alkaline Phosphatase 142 U/L (40-110); Anion Gap 16 mmol/L (10-20); BUN (Urea Nitrogen) 16 mg/dL (8.4-25.7); Bilirubin, Total 0.5 mg/dL (0.2-1.2); CK (CPK) 64 U/L (30-200); Calc. Creatinine Clearance 0 mL/min (70-130); Calcium 9.2 mg/dL (7.8-10.44); Carbon Dioxide 24 mmol/L (22-29); Chloride 104 mmol/L (98-107); Globulin 3.8 g/dL (2.4-3.5); Glucose 206 mg/dL (70-105); Potassium 3.8 mmol/L (3.5-5.1); Sodium 140 mmol/L (136-145)
[2021-08-03 21:07] LABS: CKMB 1.1 ng/mL (0-6.6)
[2021-08-03] MEDS ORDERED: Sodium Chloride 0.9% 1,000 ML ONE (21:18)
[2021-08-03] MEDS ORDERED: Mag-Al Plus 1200 MG/1200 MG/120 MG/30 ML UDCUP ONE (21:47)
[2021-08-03] MEDS ORDERED: Lidocaine Viscous Sol 2% 15 ml UD Cup ONE (21:47)
[2021-08-03] MEDS ORDERED: Morphine 4 MG/ML VIAL ONE (21:49)
[2021-08-03] MEDS ORDERED: Ondansetron PF 4 MG/2 ML Vial ONE (21:49)
[2021-08-03 22:08] LABS: SARS-CoV-2 NAA Rapid Test Not Detected (NotDetected)
[2021-08-03 23:32] LABS: Lactic Acid 1.1 mmol/L (0.5-2.2)
[2021-08-03 23:40] LABS: Troponin I 0.039 ng/mL (< 0.028)
== END 2021-08-04 00:05 | disposition home or self-care (01) ==
LOC: NAV ERS 19:54
DX: R07.9 Chest pain, unspecified (principal); I11.0 Hypertensive heart disease with heart failure; I50.9 Heart failure, unspecified; I25.10 Atherosclerotic heart disease of native coronary artery without angina pectoris; I25.2 Old myocardial infarction; K21.9 Gastro-esophageal reflux disease without esophagitis; K22.70 Barrett's esophagus without dysplasia; K44.9 Diaphragmatic hernia without obstruction or gangrene; E78.5 Hyperlipidemia, unspecified; E78.00 Pure hypercholesterolemia, unspecified; G47.33 Obstructive sleep apnea (adult) (pediatric); Z20.822 Contact with and (suspected) exposure to COVID-19; Z95.5 Presence of coronary angioplasty implant and graft; Z79.82 Long term (current) use of aspirin; Z79.899 Other long term (current) drug therapy
CPT/HCPCS: 71045; 80053; 82550; 82553; 83605; 84484 ×2; 85025; 93005; U0002; 36415; 96374; 96375; J2270; J2405; J7050

== ENCOUNTER 2021-08-06 11:11 | Emergency (ER) | payer OTHER ==
[2021-08-06] MEDS ORDERED: Nitroglycerin 0.4 MG TAB (25 Tab Bottle) ONE (11:32)
[2021-08-06 11:47] LABS: #Basophils 0.1 thou/uL (0.0-0.2); #Eosinphils 0.4 thou/uL (0.0-0.7); #Lymphocytes 1.6 thou/uL (1.20-3.40); #Monocytes 0.6 thou/uL (0.11-0.59); #Neutrophils 5.9 thou/uL (1.40-6.50); %Basophils 0.9 % (0.0-1.0); %Eosinophils 5.2 % (0.0-10.0); %Lymphocytes 18.8 % (21.0-51.0); %Monocytes 6.9 % (0.0-10.0); %Neutrophils 68.2 % (42.0-75.0); Hemoglobin 12.6 g/dL (14.0-18.0); Mean Corpuscular HGB CONC 31.5 g/dL (32.0-36.0); Mean Corpuscular Hemoglobin 28.4 pg (27.0-31.0); Mean Corpuscular Volume 90.2 fL (78.0-98.0); Mean Platelet Volume 5.4 fL (7.4-10.4); Platelet Count 516 thou/uL (130-400); RBC Distribution Width 13.2 % (11.5-14.5); Red Blood Cell (RBC) Count 4.43 mill/uL (4.70-6.10); White Blood Cell (WBC) Count 8.6 thou/uL (4.8-10.8)
[2021-08-06] MEDS ORDERED: Ondansetron PF 4 MG/2 ML Vial ONE (11:49)
[2021-08-06] MEDS ORDERED: Morphine 4 MG/ML VIAL ONE ×2 (11:49→13:25)
[2021-08-06 12:07] LABS: ALT (SGPT) 15 U/L (8-55); AST (SGOT) 20 U/L (5-34); Albumin 3.9 g/dL (3.5-5.0); Alkaline Phosphatase 123 U/L (40-110); Anion Gap 13 mmol/L (10-20); BUN (Urea Nitrogen) 13 mg/dL (8.4-25.7); Bilirubin, Total 0.5 mg/dL (0.2-1.2); Calc. Creatinine Clearance 0 mL/min (70-130); Calcium 9.4 mg/dL (7.8-10.44); Carbon Dioxide 28 mmol/L (22-29); Chloride 102 mmol/L (98-107); Glucose 105 mg/dL (70-105); Lipase 18 U/L (8-78); Protein, Total 7.9 g/dL (6.0-8.3); Sodium 139 mmol/L (136-145)
[2021-08-06 12:22] LABS: CKMB 1.2 ng/mL (0-6.6)
[2021-08-06] MEDS ORDERED: Lidocaine Viscous Sol 2% 15 ml UD Cup ONE (12:28)
[2021-08-06] MEDS ORDERED: Mag-Al Plus 1200 MG/1200 MG/120 MG/30 ML UDCUP ONE (12:28)
[2021-08-06 15:03] LABS: Troponin I 0.028 ng/mL (< 0.028)
== END 2021-08-06 15:40 | disposition home or self-care (01) ==
LOC: NAV ERS 11:11
DX: R07.9 Chest pain, unspecified (principal); G89.29 Other chronic pain; I11.0 Hypertensive heart disease with heart failure; I50.9 Heart failure, unspecified; I25.10 Atherosclerotic heart disease of native coronary artery without angina pectoris; I25.2 Old myocardial infarction; K21.9 Gastro-esophageal reflux disease without esophagitis; E78.5 Hyperlipidemia, unspecified; E78.00 Pure hypercholesterolemia, unspecified; G47.33 Obstructive sleep apnea (adult) (pediatric); Z95.5 Presence of coronary angioplasty implant and graft; Z87.19 Personal history of other diseases of the digestive system; Z79.82 Long term (current) use of aspirin; Z79.899 Other long term (current) drug therapy; Z95.1 Presence of aortocoronary bypass graft
CPT/HCPCS: 71045; 80053; 82553; 83690; 84484; 85025; 93005; 96374; 96375; 96376; J2270; J2405

== ENCOUNTER 2021-08-08 07:42 | Emergency (ER) | payer OTHER ==
[2021-08-08] MEDS ORDERED: Sodium Chloride 0.9% 1,000 ML ONE (08:29)
[2021-08-08] MEDS ORDERED: Ondansetron PF 4 MG/2 ML Vial ONE (08:29)
[2021-08-08] MEDS ORDERED: Nitroglycerin 0.4 MG TAB (25 Tab Bottle) ONE (08:29)
[2021-08-08 08:39] LABS: #Basophils 0.1 thou/uL (0.0-0.2); #Eosinphils 0.4 thou/uL (0.0-0.7); #Lymphocytes 2.1 thou/uL (1.20-3.40); #Monocytes 0.8 thou/uL (0.11-0.59); #Neutrophils 9.4 thou/uL (1.40-6.50); %Basophils 0.9 % (0.0-1.0); %Lymphocytes 16.3 % (21.0-51.0); %Monocytes 6.2 % (0.0-10.0); %Neutrophils 73.6 % (42.0-75.0); Hemoglobin 13.2 g/dL (14.0-18.0); Mean Corpuscular HGB CONC 32.7 g/dL (32.0-36.0); Mean Corpuscular Hemoglobin 29.4 pg (27.0-31.0); Mean Corpuscular Volume 89.8 fL (78.0-98.0); Mean Platelet Volume 5.6 fL (7.4-10.4); Platelet Count 488 thou/uL (130-400); RBC Distribution Width 13.4 % (11.5-14.5); White Blood Cell (WBC) Count 12.7 thou/uL (4.8-10.8)
[2021-08-08] MEDS ORDERED: Iopamidol 370 76% 100 ML VIAL ONE (09:00)
[2021-08-08 09:02] LABS: ALT (SGPT) 20 U/L (8-55); AST (SGOT) 33 U/L (5-34); Albumin 4.1 g/dL (3.5-5.0); Alkaline Phosphatase 125 U/L (40-110); Anion Gap 18 mmol/L (10-20); BUN (Urea Nitrogen) 14 mg/dL (8.4-25.7); Bilirubin, Total 0.4 mg/dL (0.2-1.2); CK (CPK) 61 U/L (30-200); Calc. Creatinine Clearance 0 mL/min (70-130); Calcium 9.3 mg/dL (7.8-10.44); Carbon Dioxide 22 mmol/L (22-29); Chloride 105 mmol/L (98-107); Globulin 4.2 g/dL (2.4-3.5); Glucose 151 mg/dL (70-105); Lipase 39 U/L (8-78); Potassium 4.6 mmol/L (3.5-5.1); Protein, Total 8.3 g/dL (6.0-8.3); Sodium 140 mmol/L (136-145)
[2021-08-08] MEDS ORDERED: Morphine 4 MG/ML VIAL ONE ×2 (09:36→11:28)
== END 2021-08-08 12:50 | disposition home or self-care (01) ==
LOC: NAV ERS 07:42
DX: R07.89 Other chest pain (principal); I45.10 Unspecified right bundle-branch block; I11.0 Hypertensive heart disease with heart failure; I50.9 Heart failure, unspecified; I25.10 Atherosclerotic heart disease of native coronary artery without angina pectoris; I25.2 Old myocardial infarction; K21.9 Gastro-esophageal reflux disease without esophagitis; E78.5 Hyperlipidemia, unspecified; E78.00 Pure hypercholesterolemia, unspecified; G47.33 Obstructive sleep apnea (adult) (pediatric); Z87.19 Personal history of other diseases of the digestive system; Z95.5 Presence of coronary angioplasty implant and graft; Z79.82 Long term (current) use of aspirin; Z79.899 Other long term (current) drug therapy
CPT/HCPCS: 71045; 71275; 74174; 80053; 82550; 83690; 84484; 85025; 93005; J2270; J2405; J7050

== ENCOUNTER 2021-08-08 21:28 | Emergency (ER) | payer MEDICARE, OTHER ==
[2021-08-08 21:46] LABS: #Basophils 0.1 thou/uL (0.0-0.2); #Eosinphils 0.6 thou/uL (0.0-0.7); #Lymphocytes 2.2 thou/uL (1.20-3.40); #Neutrophils 9.3 thou/uL (1.40-6.50); %Basophils 0.6 % (0.0-1.0); %Eosinophils 4.5 % (0.0-10.0); %Monocytes 7.2 % (0.0-10.0); %Neutrophils 70.7 % (42.0-75.0); Hemoglobin 13.3 g/dL (14.0-18.0); Mean Corpuscular HGB CONC 31.8 g/dL (32.0-36.0); Mean Corpuscular Hemoglobin 28.7 pg (27.0-31.0); Mean Corpuscular Volume 90.3 fL (78.0-98.0); Mean Platelet Volume 5.5 fL (7.4-10.4); Platelet Count 490 thou/uL (130-400); RBC Distribution Width 13.5 % (11.5-14.5); Red Blood Cell (RBC) Count 4.65 mill/uL (4.70-6.10); White Blood Cell (WBC) Count 13.1 thou/uL (4.8-10.8)
[2021-08-08] MEDS ORDERED: Morphine 4 MG/ML VIAL ONE (21:49)
[2021-08-08] MEDS ORDERED: Nitroglycerin 0.4 MG TAB (25 Tab Bottle) ONE (21:49)
[2021-08-08 22:08] LABS: ALT (SGPT) 16 U/L (8-55); AST (SGOT) 18 U/L (5-34); Albumin 4.3 g/dL (3.5-5.0); Alkaline Phosphatase 126 U/L (40-110); BUN (Urea Nitrogen) 14 mg/dL (8.4-25.7); Bilirubin, Total 0.3 mg/dL (0.2-1.2); CK (CPK) 72 U/L (30-200); Calc. Creatinine Clearance 0 mL/min (70-130); Calcium 9.6 mg/dL (7.8-10.44); Chloride 105 mmol/L (98-107); Globulin 4.4 g/dL (2.4-3.5); Glucose 100 mg/dL (70-105); Potassium 3.7 mmol/L (3.5-5.1); Protein, Total 8.7 g/dL (6.0-8.3); Sodium 142 mmol/L (136-145)
[2021-08-08] MEDS ORDERED: Nitroglycerin 2% Ointment 1 INCH/1 GM Packet ONE (22:30)
[2021-08-08 22:44] LABS: Carbon Dioxide 23 mmol/L (22-29)
[2021-08-08 22:45] LABS: Anion Gap 14 mmol/L (10-20)
== END 2021-08-08 23:20 | disposition short-term general hospital (02) ==
LOC: NAV ERS 21:28
DX: R07.89 Other chest pain (principal); I45.10 Unspecified right bundle-branch block; I11.0 Hypertensive heart disease with heart failure; I50.9 Heart failure, unspecified; I25.10 Atherosclerotic heart disease of native coronary artery without angina pectoris; I25.2 Old myocardial infarction; K21.9 Gastro-esophageal reflux disease without esophagitis; E78.5 Hyperlipidemia, unspecified; E78.00 Pure hypercholesterolemia, unspecified; G47.33 Obstructive sleep apnea (adult) (pediatric); Z87.19 Personal history of other diseases of the digestive system; Z95.5 Presence of coronary angioplasty implant and graft; Z79.82 Long term (current) use of aspirin; Z79.899 Other long term (current) drug therapy
CPT/HCPCS: 71045; 71275; 74174; 80053; 82550; 83690; 84484; 85025; 93005; 96374; 96375; 96376; J2270; J2405; J7050; Q9967

== ENCOUNTER → 2021-10-01 | Emergency (ER) | payer OTHER ==
[~2021-10-01] MED LIST changes: -Aspirin Chewable 81 MG TAB ONE; +Cefepime 2 GM VIAL ONE; -Morphine 4 MG/ML VIAL ONE; -Nitroglycerin 0.4 MG TAB (25 Tab Bottle) ONE; -Ondansetron PF 4 MG/2 ML Vial ONE; +Sodium Chloride 0.9% 1,000 ML ONE; +Sodium Chloride 0.9% 100 ML ONE; -diphenhydrAMINE 25 MG CAP ONE
[2021-10-01 00:36] LABS: Hemoglobin 8.8 g/dL (14.0-18.0); Mean Corpuscular HGB CONC 29.4 g/dL (32.0-36.0); Mean Corpuscular Hemoglobin 27.2 pg (27.0-31.0); Mean Corpuscular Volume 92.5 fL (78.0-98.0); Mean Platelet Volume 6.3 fL (7.4-10.4); Platelet Count 260 thou/uL (130-400); Red Blood Cell (RBC) Count 3.25 mill/uL (4.70-6.10); White Blood Cell (WBC) Count 11.9 thou/uL (4.8-10.8)
[2021-10-01 00:37] LABS: #Eosinphils 0.2 thou/uL (0.0-0.7); #Lymphocytes 1.6 thou/uL (1.20-3.40); #Monocytes 1.3 thou/uL (0.11-0.59); #Neutrophils 8.8 thou/uL (1.40-6.50); %Basophils 0.3 % (0.0-1.0); %Lymphocytes 13.3 % (21.0-51.0); %Monocytes 10.8 % (0.0-10.0); %Neutrophils 73.7 % (42.0-75.0); Manual Diff?? NO
[2021-10-01 01:09] LABS: ALT (SGPT) 10 U/L (8-55); AST (SGOT) 36 U/L (5-34); Albumin 3.3 g/dL (3.5-5.0); Alkaline Phosphatase 49 U/L (40-110); Anion Gap 14 mmol/L (10-20); BUN (Urea Nitrogen) 20 mg/dL (8.4-25.7); Bilirubin, Total 0.5 mg/dL (0.2-1.2); Calc. Creatinine Clearance 0 mL/min (70-130); Calcium 8.6 mg/dL (7.8-10.44); Carbon Dioxide 25 mmol/L (22-29); Chloride 101 mmol/L (98-107); Globulin 3.2 g/dL (2.4-3.5); Glucose 98 mg/dL (70-105); Potassium 4.3 mmol/L (3.5-5.1); Protein, Total 6.5 g/dL (6.0-8.3); Sodium 136 mmol/L (136-145)
[2021-10-01 01:15] LABS: Clarity Clear (Clear); Glucose, Urine (Dipstick) Negative (Negative); Ketone, Urine Negative (Negative); Leukocyte Negative (Negative); Nitrite Negative (Negative); Protein, Urine (Dipstick) Trace mg/dL (Neg-Trace); Specific Gravity, Urine 1.025 (1.002-1.036); Urobilinogen 0.2 mg/dL (Less than 2); pH, Urine 5.5 (5.0-9.0)
[2021-10-01 01:16] LABS: Bilirubin Negative (Negative); Blood, Urine Negative (Negative)
== END | disposition short-term general hospital (02) ==
LOC: NAV ERS 00:06
DX: R50.82 Postprocedural fever (principal); D64.9 Anemia, unspecified; D72.829 Elevated white blood cell count, unspecified; I11.0 Hypertensive heart disease with heart failure; I25.2 Old myocardial infarction; I50.9 Heart failure, unspecified; E78.5 Hyperlipidemia, unspecified; G47.33 Obstructive sleep apnea (adult) (pediatric); Z79.899 Other long term (current) drug therapy; Z79.82 Long term (current) use of aspirin
CPT/HCPCS: 71045; 80053; 81003; 83605; 84484; 85025; 87040; J0692; J3490; J7050

== ENCOUNTER 2022-02-25 16:59 | Emergency (ER) | payer OTHER | END 2022-02-25 17:35 | disposition home or self-care (01) | LOC: NAV ERS 16:59 | DX: G89.29 Other chronic pain (principal); M54.50 Low back pain, unspecified; I25.2 Old myocardial infarction; K21.9 Gastro-esophageal reflux disease without esophagitis; E78.00 Pure hypercholesterolemia, unspecified; I11.0 Hypertensive heart disease with heart failure; I50.9 Heart failure, unspecified; I25.810 Atherosclerosis of coronary artery bypass graft(s) without angina pectoris; Z79.899 Other long term (current) drug therapy; Z79.82 Long term (current) use of aspirin | CPT/HCPCS: 99283 ==

== ENCOUNTER 2023-01-10 02:06 | Emergency (ER) | payer MEDICARE ==
[2023-01-10 02:42] LABS: #Basophils 0.1 thou/uL (0.0-0.2); #Eosinphils 0.2 thou/uL (0.0-0.7); #Lymphocytes 1.8 thou/uL (1.20-3.40); #Monocytes 0.8 thou/uL (0.11-0.59); #Neutrophils 6.2 thou/uL (1.40-6.50); %Basophils 0.8 % (0.0-1.0); %Eosinophils 1.9 % (0.0-10.0); %Lymphocytes 20.1 % (21.0-51.0); %Monocytes 9.1 % (0.0-10.0); %Neutrophils 68.1 % (42.0-75.0); Hematocrit 35.4 % (42.0-52.0); Mean Corpuscular HGB CONC 30.9 g/dL (32.0-36.0); Mean Corpuscular Hemoglobin 27.1 pg (27.0-31.0); Mean Corpuscular Volume 87.7 fl (78.0-98.0); Mean Platelet Volume 5.8 fL (7.4-10.4); Platelet Count 505 10x3/uL (130-400); RBC Distribution Width 15.7 % (11.5-14.5); Red Blood Cell (RBC) Count 4.04 mill/uL (4.70-6.10); White Blood Cell (WBC) Count 9.1 10x3/uL (4.8-10.8)
[2023-01-10] MEDS ORDERED: Morphine 4 MG/ML VIAL ONE (02:46)
[2023-01-10] MEDS ORDERED: Ipratropium/Albuterol 3 ML NEB ONE (02:47)
[2023-01-10] MEDS ORDERED: Ondansetron PF 4 MG/2 ML Vial ONE (02:47)
[2023-01-10] MEDS ORDERED: Aspirin Chewable 81 MG TAB ONE (02:47)
[2023-01-10] MEDS ORDERED: Nitroglycerin 2% Ointment 1 INCH/1 GM Packet ONE (02:47)
[2023-01-10 02:50] LABS: Carbon Dioxide 21 mmol/L (22-29)
[2023-01-10 02:56] LABS: ALT (SGPT) 24 U/L (8-55); AST (SGOT) 18 U/L (5-34); Albumin 3.8 g/dL (3.5-5.0); Alkaline Phosphatase 66 U/L (40-110); Anion Gap 18 mmol/L (10-20); BUN (Urea Nitrogen) 16 mg/dL (8.4-25.7); Bilirubin, Total 0.5 mg/dL (0.2-1.2); Calc. Creatinine Clearance 0 mL/min (70-130); Calcium 9.1 mg/dL (7.8-10.44); Chloride 105 mmol/L (98-107); Estimated GFR 98; Glucose 104 mg/dL (70-105); Potassium 3.8 mmol/L (3.5-5.1); Protein, Total 7.8 g/dL (6.0-8.3); Sodium 140 mmol/L (136-145)
[2023-01-10] MEDS ORDERED: Heparin 5,000 UNITS/ML VIAL ONE (03:17)
[2023-01-10] MEDS ORDERED: Metoprolol Tartrate 5 MG/5 ML VIAL ONE (03:17)
[2023-01-10] MEDS ORDERED: Clopidogrel Bisulfate 75 MG TAB ONE (03:17)
[2023-01-10] MEDS ORDERED: Heparin 25,000 units/D5W 500 ML ONE (03:17)
[2023-01-10] MEDS ORDERED: Heparin 10,000 UNITS/ 10 ML VIAL ONE (03:17)
== END 2023-01-10 03:58 | disposition short-term general hospital (02) ==
LOC: NAV ERS 02:06
DX: I21.4 Non-ST elevation (NSTEMI) myocardial infarction (principal); I25.10 Atherosclerotic heart disease of native coronary artery without angina pectoris; K21.9 Gastro-esophageal reflux disease without esophagitis; E78.00 Pure hypercholesterolemia, unspecified; I11.0 Hypertensive heart disease with heart failure; I50.9 Heart failure, unspecified; Z79.899 Other long term (current) drug therapy; Z79.82 Long term (current) use of aspirin
CPT/HCPCS: 71045; 80053; 83880; 84484; 85025; 85379; 93005; 94640; 94760; 96365; 96375; 96376; J1644; J2270; J2405; J7620

== ENCOUNTER 2023-02-04 11:06 | Emergency (ER) | payer MEDICARE | END 2023-02-04 12:01 | disposition home or self-care (01) | LOC: NAV ERS 11:06 | DX: M25.562 Pain in left knee (principal); I11.0 Hypertensive heart disease with heart failure; I50.9 Heart failure, unspecified; K21.9 Gastro-esophageal reflux disease without esophagitis; Z79.899 Other long term (current) drug therapy; Z79.82 Long term (current) use of aspirin; W19.XXXA Unspecified fall, initial encounter ==

== ENCOUNTER 2023-02-18 22:48 | Emergency (ER) | payer MEDICARE ==
[~2023-02-18 22:48] MED LIST changes: -Cefepime 2 GM VIAL ONE; +Iopamidol 370 76% 100 ML VIAL ONE; -Sodium Chloride 0.9% 1,000 ML ONE; -Sodium Chloride 0.9% 100 ML ONE
[2023-02-18] MEDS ORDERED: Aspirin Chewable 81 MG TAB ONE (23:23)
[2023-02-18 23:43] LABS: #Basophils 0.1 thou/uL (0.0-0.2); #Eosinphils 0.4 thou/uL (0.0-0.7); #Lymphocytes 1.1 thou/uL (1.20-3.40); #Monocytes 0.7 thou/uL (0.11-0.59); #Neutrophils 5.1 thou/uL (1.40-6.50); %Basophils 0.7 % (0.0-1.0); %Eosinophils 5.1 % (0.0-10.0); %Lymphocytes 15.1 % (21.0-51.0); %Monocytes 9.3 % (0.0-10.0); %Neutrophils 69.8 % (42.0-75.0); Hematocrit 32.8 % (42.0-52.0); Hemoglobin 9.9 g/dL (14.0-18.0); Mean Corpuscular HGB CONC 30.1 g/dL (32.0-36.0); Mean Corpuscular Hemoglobin 26.4 pg (27.0-31.0); Mean Corpuscular Volume 87.9 fl (78.0-98.0); Mean Platelet Volume 5.4 fL (7.4-10.4); Platelet Count 371 10x3/uL (130-400); RBC Distribution Width 16.2 % (11.5-14.5); Red Blood Cell (RBC) Count 3.74 mill/uL (4.70-6.10); White Blood Cell (WBC) Count 7.3 10x3/uL (4.8-10.8)
[2023-02-18 23:53] LABS: ALT (SGPT) 16 U/L (8-55); AST (SGOT) 22 U/L (5-34); Albumin 3.6 g/dL (3.5-5.0); Alkaline Phosphatase 54 U/L (40-110); Anion Gap 12 mmol/L (10-20); BUN (Urea Nitrogen) 22 mg/dL (8.4-25.7); Bilirubin, Total 0.2 mg/dL (0.2-1.2); Calc. Creatinine Clearance 0 mL/min (70-130); Carbon Dioxide 25 mmol/L (22-29); Chloride 105 mmol/L (98-107); Estimated GFR 82; Globulin 3.5 g/dL (2.4-3.5); Glucose 117 mg/dL (70-105); Potassium 3.7 mmol/L (3.5-5.1); Protein, Total 7.1 g/dL (6.0-8.3); Sodium 138 mmol/L (136-145)
[2023-02-18 23:54] LABS: Troponin I 0.138 ng/mL (< 0.028)
[2023-02-19] MEDS ORDERED: Morphine 2 MG/ML VIAL ONE ×2 (00:10→01:23)
[2023-02-19] MEDS ORDERED: Sertraline 25 MG TAB ONE (00:11)
[2023-02-19] MEDS ORDERED: Spironolactone 25 MG TAB PO SCH (00:15)
[2023-02-19 00:49] LABS: Bilirubin Negative (Negative); Blood, Urine Trace (Negative); Glucose, Urine (Dipstick) >=1000 mg/dL (Negative); Ketone, Urine Trace mg/dL (Negative); Leukocyte Negative (Negative); Nitrite Positive (Negative); Protein, Urine (Dipstick) 30 mg/dL (Neg-Trace); Urobilinogen 0.2 mg/dL (Less than 2)
[2023-02-19 00:59] LABS: Clarity Hazy (Clear)
[2023-02-19 01:00] LABS: Specific Gravity, Urine 1.029 (1.002-1.036)
[2023-02-19 01:01] LABS: Bacteria/HPF 4+ HPF (None Seen); RBC/HPF 0-3 HPF (0-3)
[2023-02-19] MEDS ORDERED: Sodium Chloride 0.9% 100 ML ONE (01:23)
[2023-02-19] MEDS ORDERED: cefTRIAXone (ROCEPHIN) 1 GM VIAL ONE (01:23)
== END 2023-02-19 02:01 | disposition short-term general hospital (02) ==
LOC: NAV ERS 22:48
DX: R07.9 Chest pain, unspecified (principal); R06.02 Shortness of breath; I11.0 Hypertensive heart disease with heart failure; I50.9 Heart failure, unspecified; I10 Essential (primary) hypertension; E78.00 Pure hypercholesterolemia, unspecified; K21.9 Gastro-esophageal reflux disease without esophagitis; Z79.84 Long term (current) use of oral hypoglycemic drugs; Z79.82 Long term (current) use of aspirin; Z87.891 Personal history of nicotine dependence; Z79.899 Other long term (current) drug therapy
CPT/HCPCS: 71045; 71275; 80053; 81001; 83880; 84484; 85025; 85379; 93005; 96374; 96375; J0696; J2272; J3490; Q9967